=== PATIENT | female | born 1955 | race Hispanic/Latino ===

== ENCOUNTER 2021-02-26 09:17 | Observation (INO) | payer MEDICARE ==
[~2021-02-26] VITALS: Ht 160 cm; Wt 67.8 kg
[2021-02-26 09:48] LABS: BASOPHILS % (AUTO) 0.4 % (0.0-5.0); EOSINOPHILS % (AUTO) 0.6 % (0.0-8.0); HEMATOCRIT 45.2 % (36-48); LYMPHOCYTES % (AUTO) 24.9 % (21.0-51.0); MEAN CORPUSCULAR HEMOGLOBIN 29.4 pg (27.0-33.0); MEAN CORPUSCULAR HGB CONC 33.2 g/dL (32.0-36.0); MEAN CORPUSCULAR VOLUME 88.5 fL (79-99); MONOCYTES % (AUTO) 4.8 % (3.0-13.0); NEUTROPHILS % (AUTO) 68.8 % (40.0-77.0); PLATELET COUNT (AUTO) 330 K/uL (130-400); RED BLOOD CELL COUNT(AUTO) 5.11 MIL/uL (4.00-5.50); RED CELL DISTRIBUTION WIDTH 12.6 % (11.0-15.5); WHITE BLOOD COUNT (AUTO) 7.8 K/uL (4.8-10.8)
[2021-02-26 10:01] LABS: CREATININE 0.8 mg/dL (0.5-1.5)
[2021-02-26 10:05] LABS: INR 0.94 (0.85-1.15); PROTHROMBIN TIME 10.3 SEC (9.6-11.6)
[2021-02-26 10:06] LABS: ALBUMIN 3.9 g/dL (3.5-5.0); B-TYPE NATRIURETIC PEPTIDE 119 pg/mL (0-100); BILIRUBIN,TOTAL 0.5 mg/dL (0.2-1.0); PARTIAL THROMBOPLASTIN TIME 23.6 SEC (26.3-35.5); TOTAL PROTEIN, SERUM 7.5 g/dL (6.0-8.3)
[2021-02-26 13:36] LABS: MAGNESIUM 2.2 mg/dL (1.80-2.40); THYROID STIMULATING HORMONE 3.25 uIU/mL (0.36-3.74)
[2021-02-26] MEDS: DOXYCYCLINE 100MG+NS 250ML 250 ML IV SCH (14:45)
[2021-02-26] MEDS ORDERED: FOLIC ACID 5 MG/ML 10 ML VIAL IV SCH (14:45)
[2021-02-26] MEDS ORDERED: THIAMINE HCL 100 MG/ML 2ML VIAL IVP SCH (14:45)
[2021-02-26] MEDS: CEFTRIAXONE SODIUM 1 GM IVP SCH (14:45)
[2021-02-26 14:54] LABS: APPEARANCE,URINE Clear (CLEAR); BILIRUBIN,URINE Negative (NEGATIVE); COLOR,URINE Yellow (YELLOW); GLUCOSE, URINE (UA) >=1000 mg/dL (NEGATIVE); KETONES,URINE Negative (NEGATIVE); LEUKOCYTE ESTERASE ,URINE Negative (NEGATIVE); NITRATE,URINE Negative (NEGATIVE); OCCULT BLOOD,URINE Negative (NEGATIVE); PROTEIN,URINE Negative (NEGATIVE); UROBILINOGEN,URINE 0.2 mg/dL (0.2-1.0)
[2021-02-26 15:01] LABS: HEMOGLOBIN A1C 8.3 % (4.0-6.0)
[2021-02-26 15:17] LABS: BACTERIA,URINE Many /HPF (None Seen); RBC,URINE None Seen /HPF (0-1); WBC,URINE 0-1 /HPF (0-1)
[2021-02-26 15:18] LABS: SQUAMOUS EPITHELIAL CELL,UR 0-2 /HPF (0-2)
[2021-02-26] MEDS ORDERED: THIAMINE HCL 100 MG/ML 2ML VIAL ONE (15:27)
[2021-02-26] MEDS ORDERED: CEFTRIAXONE SODIUM 1 GM ONE (15:27)
[2021-02-26] MEDS ORDERED: FOLIC ACID 5 MG/ML 10 ML VIAL ONE (15:31)
[2021-02-26] MEDS ORDERED: SODIUM CHLORIDE 0.9% 1000ML 1,000 ML IV ONE (15:34)
[2021-02-26] MEDS ORDERED: ASPIRIN 81MG TAB.CHEW PO SCH (16:30)
[2021-02-26] MEDS ORDERED: ASPIRIN 81MG TAB.CHEW ONE (17:36)
[2021-02-26] MEDS ORDERED: DOXYCYCLINE 100MG+NS 250ML 250 ML IV ONE ×2 (17:36→21:35)
[2021-02-26] MEDS: INSULIN HUMULIN R 100 UNIT/ML 3ML SQ SCH (21:00)
[2021-02-26] MEDS ORDERED: DAPA10TA PO (21:17)
[2021-02-26] MEDS ORDERED: LOSA25TA41 PO (21:18)
[2021-02-26] MEDS ORDERED: ASPI-1197 PO (21:18)
[2021-02-26] MEDS ORDERED: METF-445 PO (21:19)
[2021-02-26] MEDS ORDERED: LINA5TAB PO (21:20)
[2021-02-26] MEDS ORDERED: LIRA0.6P SQ (21:21)
[2021-02-26] MEDS ORDERED: LOSARTAN 50 MG TABLET ONE (21:35)
[2021-02-26 21:53] LABS: CREATININE 0.6 mg/dL (0.5-1.5); POTASSIUM 3.9 mmol/L (3.5-5.1)
[2021-02-26 22:30] VITALS: BP 142/69
[2021-02-27] MEDS: CEFTRIAXONE SODIUM 1 GM IVP SCH (02:47)
[2021-02-27] MEDS ORDERED: DOXYCYCLINE 100MG+NS 250ML 250 ML IV ONE (02:52)
[2021-02-27] MEDS: DOXYCYCLINE 100MG+NS 250ML 250 ML IV SCH (02:55)
[2021-02-27] MEDS: SODIUM CHLORIDE 0.9% 1000ML 1,000 ML IV SCH ×2 (02:56→04:05)
[2021-02-27 04:00] VITALS: BP 128/57
[2021-02-27 05:32] LABS: BASOPHILS % (AUTO) 0.6 % (0.0-5.0); EOSINOPHILS % (AUTO) 2.5 % (0.0-8.0); HEMATOCRIT 38.2 % (36-48); LYMPHOCYTES % (AUTO) 35.7 % (21.0-51.0); MEAN CORPUSCULAR HEMOGLOBIN 29.6 pg (27.0-33.0); MEAN CORPUSCULAR HGB CONC 33.5 g/dL (32.0-36.0); MEAN CORPUSCULAR VOLUME 88.4 fL (79-99); MONOCYTES % (AUTO) 7.7 % (3.0-13.0); NEUTROPHILS % (AUTO) 53.3 % (40.0-77.0); PLATELET COUNT (AUTO) 264 K/uL (130-400); RED BLOOD CELL COUNT(AUTO) 4.32 MIL/uL (4.00-5.50); RED CELL DISTRIBUTION WIDTH 12.8 % (11.0-15.5); WHITE BLOOD COUNT (AUTO) 4.8 K/uL (4.8-10.8)
[2021-02-27] MEDS: INSULIN HUMULIN R 100 UNIT/ML 3ML SQ SCH ×2 (06:02→11:30)
[2021-02-27 06:21] LABS: CREATININE 0.6 mg/dL (0.5-1.5); MAGNESIUM 1.8 mg/dL (1.80-2.40); POTASSIUM 3.8 mmol/L (3.5-5.1)
[2021-02-27 07:00] VITALS: BP_SYST 132; BP_SYST 138; BP_SYST 145; BP_DIAS 69; BP_DIAS 71; BP_DIAS 78
[2021-02-27] MEDS ORDERED: THIAMINE HCL 100 MG/ML 2ML VIAL IVP SCH (09:00)
[2021-02-27] MEDS ORDERED: ENOXAPARIN SODIUM 40 MG/0.4 ML SYRINGE SQ SCH (09:00)
[2021-02-27] MEDS ORDERED: FOLIC ACID 5 MG/ML 10 ML VIAL IV SCH (09:00)
[2021-02-27] MEDS ORDERED: LOSARTAN 25 MG TABLET PO SCH (09:00)
[2021-02-27] MEDS ORDERED: ASPIRIN 81MG TAB.CHEW PO SCH ×2 (09:00)
[2021-02-27 11:00] VITALS: BP 134/61
[2021-02-27] MEDS ORDERED: SULF1TAB42 PO (12:18)
[2021-02-27 13:29] LABS: AMPHET/METH SCREEN,URINE NEGATIVE (NEGATIVE); BARBITURATE SCREEN, URINE NEGATIVE (NEGATIVE); BENZODIAZEPINES SCREEN,URINE NEGATIVE (NEGATIVE); CANNABINOID SCREEN,URINE NEGATIVE (NEGATIVE); COCAINE SCREEN,URINE NEGATIVE (NEGATIVE); OPIATE SCREEN,URINE NEGATIVE (NEGATIVE); PHENCYCLIDINE SCREEN,URINE NEGATIVE (NEGATIVE)
== END 2021-02-27 15:45 | disposition home or self-care (01) ==
LOC: EDH 09:17 → EDHIP 14:32 → 3CH 21:34
PROVIDERS: ADMIT Internal Medicine; ATTEND Internal Medicine
DX: R00.0 Tachycardia, unspecified (principal); Z20.822 Contact with and (suspected) exposure to COVID-19; R07.89 Other chest pain; E87.2 Acidosis; E86.0 Dehydration; I10 Essential (primary) hypertension; R77.8 Other specified abnormalities of plasma proteins; R11.2 Nausea with vomiting, unspecified; N39.0 Urinary tract infection, site not specified; E11.9 Type 2 diabetes mellitus without complications; E78.5 Hyperlipidemia, unspecified; Z79.84 Long term (current) use of oral hypoglycemic drugs; Z79.82 Long term (current) use of aspirin; Z79.899 Other long term (current) drug therapy
CPT/HCPCS: 36415 ×2; 71045; 80048; 80053; 80305; 81001; 82550; 82948 ×3; 83036; 83605 ×2; 83735 ×3; 83880; 84145; 84443; 84484 ×4; 85025 ×2; 85378; 85610; 85651; 85730; 86140; 87040 ×2; 87077; 87088; 87186; 87426; 87507; 87804 ×2; 93005 ×2; 93970; 96365; 96366; 96372; 96375; 99285; G0378 ×25; J0696 ×2; J1650; J3411 ×2; J3490 ×6; J7030 ×2; U0003

== ENCOUNTER 2023-02-24 02:31 | Observation (INO) | payer MEDICARE ==
[~2023-02-24] VITALS: Ht 160 cm; Wt 68.5 kg
[~2023-02-24 02:31] MED LIST: APIX5TAB PO; ATOR10TA69 PO; CILO100T3 PO; DAPA10TA PO; GABA-529 PO; LINA5TAB PO; LIRA0.6P SQ; LOSA25TA41 PO; METF-445 PO; PROP225C8 PO
[2023-02-24] MEDS ORDERED: DILTIAZEM 125 MG/25 ML INJ IV ONE (02:34)
[2023-02-24 02:48] LABS: BASOPHILS % (AUTO) 0.7 % (0.0-5.0); EOSINOPHILS % (AUTO) 2.1 % (0.0-8.0); HEMATOCRIT 44.5 % (36-48); LYMPHOCYTES % (AUTO) 41.5 % (21.0-51.0); MEAN CORPUSCULAR HEMOGLOBIN 26.7 pg (27.0-33.0); MEAN CORPUSCULAR HGB CONC 31.5 g/dL (32.0-36.0); MEAN CORPUSCULAR VOLUME 84.9 fL (79-99); MONOCYTES % (AUTO) 8.2 % (3.0-13.0); NEUTROPHILS % (AUTO) 47.2 % (40.0-77.0); PLATELET COUNT (AUTO) 332 K/uL (130-400); RED BLOOD CELL COUNT(AUTO) 5.24 MIL/uL (4.00-5.50); RED CELL DISTRIBUTION WIDTH 14.6 % (11.0-15.5)
[2023-02-24] MEDS ORDERED: METOPROLOL TARTRATE 1 MG/ML 5ML VIAL IV ONE ×2 (02:49→04:30)
[2023-02-24 03:00] LABS: CREATININE 0.8 mg/dL (0.5-1.5); POTASSIUM 4.3 mmol/L (3.5-5.1)
[2023-02-24 03:02] LABS: INR 0.93 (0.85-1.15); PROTHROMBIN TIME 10.1 SEC (9.6-11.6)
[2023-02-24 03:03] LABS: PARTIAL THROMBOPLASTIN TIME 27.5 SEC (26.3-35.5)
[2023-02-24 03:05] LABS: ALBUMIN 4.1 g/dL (3.5-5.0); MAGNESIUM 1.9 mg/dL (1.80-2.40); TOTAL PROTEIN, SERUM 6.9 g/dL (6.0-8.3)
[2023-02-24 03:22] LABS: B-TYPE NATRIURETIC PEPTIDE 324 pg/mL (0-100)
[2023-02-24] MEDS ORDERED: MIDAZOLAM HCL 5 MG/ML 2ML VIAL IV ONE (03:46)
[2023-02-24 03:53] VITALS: BP_DIAS 62
[2023-02-24] MEDS ORDERED: ONDANSETRON 4MG INJ IV PRN (04:00)
[2023-02-24] MEDS ORDERED: AMIODARONE 900MG VIAL 360 MG in DEXTROSE 5%-WATER 200 ML IV SCH (04:00)
[2023-02-24] MEDS ORDERED: KCL 20 MEQ ERTAB PO PRN (04:00)
[2023-02-24] MEDS ORDERED: LACTATED RINGERS 1000ML 1,000 ML IV SCH (04:00)
[2023-02-24] MEDS ORDERED: POTASSIUM CHLORIDE 10MEQ/100ML 100 ML IV PRN (04:00)
[2023-02-24] MEDS ORDERED: ACETAMINOPHEN 325 MG TAB PO PRN ×2 (04:00)
[2023-02-24] MEDS ORDERED: MIDAZOLAM HCL 1 MG/ML 2ML VIAL IVP ONE (04:00)
[2023-02-24] MEDS ORDERED: MORPHINE 4 MG SYG IV PRN (04:00)
[2023-02-24] MEDS ORDERED: LIDOCAINE HCL-MPF 1% 2ML VIAL IV PRN (04:00)
[2023-02-24] MEDS ORDERED: POTASSIUM CHLORIDE 10% ELIXIR 20 MEQ/15 ML UDCUP PO PRN (04:00)
[2023-02-24] MEDS ORDERED: MAGNESIUM 2GM PREMIX 50ML 50 ML IV PRN (04:00)
[2023-02-24] MEDS ORDERED: MORPHINE 2 MG SYG IV PRN (04:00)
[2023-02-24] MEDS ORDERED: SEMA1PEN3 SQ (04:17)
[2023-02-24] MEDS ORDERED: DILTIAZEM 25MG INJ IVP ONE (04:30)
[2023-02-24] MEDS ORDERED: 0.9%NACL 1000ML 1,000 ML IV ONE (04:30)
[2023-02-24] MEDS ORDERED: AMIODARONE 150MG VIAL ONE (04:30)
[2023-02-24 05:55] LABS: APPEARANCE,URINE CLEAR (CLEAR); BILIRUBIN,URINE NEGATIVE (NEGATIVE); COLOR,URINE COLORLESS (YELLOW); GLUCOSE, URINE (UA) >=1000 mg/dL (NEGATIVE); KETONES,URINE NEGATIVE (NEGATIVE); LEUKOCYTE ESTERASE ,URINE NEGATIVE Leu/uL (NEGATIVE); NITRATE,URINE NEGATIVE (NEGATIVE); OCCULT BLOOD,URINE NEGATIVE (NEGATIVE); PROTEIN,URINE NEGATIVE (NEGATIVE); UROBILINOGEN,URINE 0.2 mg/dL (0.2-1.0)
[2023-02-24 05:56] LABS: MUCUS,URINE RARE LPF (None Seen); RBC,URINE 0-1 /HPF (0-1); SQUAMOUS EPITHELIAL CELL,UR RARE /HPF (0-2); WBC,URINE 0-1 /HPF (0-1)
[2023-02-24 07:16] LABS: HEMOGLOBIN A1C 7.4 % (4.0-6.0)
[2023-02-24] MEDS: INSULIN HUMULIN R 100 UNIT/ML 3ML SQ SCH ×4 (07:30→21:04)
[2023-02-24] MEDS: APIXABAN 5 MG TABLET PO SCH ×2 (08:54→21:03)
[2023-02-24] MEDS: FAMOTIDINE 20MG TAB PO SCH (08:54)
[2023-02-24 09:14] VITALS: BP 119/64
[2023-02-24] MEDS ORDERED: AMIODARONE 900MG VIAL 540 MG in DEXTROSE 5%-WATER 300 ML IV SCH (10:00)
[2023-02-24 11:49] VITALS: BP 110/60
[2023-02-24 16:02] VITALS: BP 121/71
[2023-02-24 19:29] VITALS: BP 118/67
[2023-02-24] MEDS ORDERED: ATORVASTATIN 20 MG TABLET PO SCH (21:00)
[2023-02-24] MEDS ORDERED: GABAPENTIN 100 MG CAPSULE PO SCH (21:00)
[2023-02-24 23:57] VITALS: BP 117/64
[2023-02-25 04:12] LABS: BASOPHILS % (AUTO) 0.6 % (0.0-5.0); EOSINOPHILS % (AUTO) 2.7 % (0.0-8.0); HEMATOCRIT 37.5 % (36-48); LYMPHOCYTES % (AUTO) 27.9 % (21.0-51.0); MEAN CORPUSCULAR HEMOGLOBIN 26.8 pg (27.0-33.0); MEAN CORPUSCULAR HGB CONC 31.5 g/dL (32.0-36.0); MONOCYTES % (AUTO) 9.2 % (3.0-13.0); NEUTROPHILS % (AUTO) 59.4 % (40.0-77.0); PLATELET COUNT (AUTO) 257 K/uL (130-400); RED BLOOD CELL COUNT(AUTO) 4.41 MIL/uL (4.00-5.50); RED CELL DISTRIBUTION WIDTH 14.6 % (11.0-15.5); WHITE BLOOD COUNT (AUTO) 4.9 K/uL (4.8-10.8)
[2023-02-25 04:32] VITALS: BP 124/73
[2023-02-25 04:34] VITALS: BP 124/73
[2023-02-25 04:40] LABS: CREATININE 0.7 mg/dL (0.5-1.5); PHOSPHORUS 4.5 mg/dL (2.5-4.9); POTASSIUM 4.3 mmol/L (3.5-5.1); THYROID STIMULATING HORMONE 1.74 uIU/mL (0.36-3.74)
[2023-02-25] MEDS: INSULIN HUMULIN R 100 UNIT/ML 3ML SQ SCH ×2 (06:18→11:30)
[2023-02-25] MEDS ORDERED: LINAGLIPTIN 5 MG TABLET ONE (07:29)
[2023-02-25] MEDS ORDERED: AMIODARONE 900MG VIAL 540 MG in DEXTROSE 5%-WATER 300 ML IV SCH (07:30)
[2023-02-25] MEDS: FAMOTIDINE 20MG TAB PO SCH (07:35)
[2023-02-25] MEDS: APIXABAN 5 MG TABLET PO SCH (07:35)
[2023-02-25 08:00] VITALS: BP 139/77
[2023-02-25] MEDS ORDERED: **HM**FARXIGA 10MG PO SCH (09:00)
[2023-02-25] MEDS ORDERED: LINAGLIPTIN 5 MG TABLET PO SCH (09:00)
[2023-02-25 11:25] VITALS: BP 115/61
[2023-02-25] MEDS ORDERED: AMIODARONE 200 MG TABLET PO SCH (12:00)
[2023-02-25] MEDS ORDERED: AMIO200T68 PO (13:57)
== END 2023-02-25 16:22 | disposition home or self-care (01) ==
LOC: EDH 02:31 → EDHIP 03:57 → INTOOBSV 03:57 → 2DH 08:21
PROVIDERS: ADMIT Internal Medicine; ATTEND Internal Medicine
DX: I48.20 Chronic atrial fibrillation, unspecified (principal); I47.1 Supraventricular tachycardia; E11.9 Type 2 diabetes mellitus without complications; E78.5 Hyperlipidemia, unspecified; R79.89 Other specified abnormal findings of blood chemistry; I20.9 Angina pectoris, unspecified; Z51.5 Encounter for palliative care; Z79.01 Long term (current) use of anticoagulants; Z79.899 Other long term (current) drug therapy; Z90.49 Acquired absence of other specified parts of digestive tract; Z98.890 Other specified postprocedural states
CPT/HCPCS: 96361; 96365; 96366 ×3; 96375; 96368; 99285; 83036; 83735 ×3; 84484 ×4; 80053; 83880; 85025 ×2; 85610; 85730; 82948 ×6; 81001; 36415 ×2; 71045; 93005 ×2; 84443; 84100; 80048; J1815; J3475; J3490 ×2; J7060 ×2; J0282 ×3; J2250; G0378 ×2

== ENCOUNTER → 2023-03-03 | Outpatient (CLI) | payer MEDICARE ==
[~2023-03-03] MED LIST changes: +AMIO200T68 PO; -LIRA0.6P SQ; -PROP225C8 PO; +REGADENOSON 0.4 MG/5 ML PF SYG IVP ONE; +SEMA1PEN3 SQ
== END | disposition home or self-care (01) ==
LOC: SHCH 08:32
PROVIDERS: ATTEND Internal Medicine Cardiovascular Disease
DX: R07.9 Chest pain, unspecified (principal)
CPT/HCPCS: 78452; 96374; 93017; J2785; A9500 ×2

== ENCOUNTER → 2024-04-29 | Outpatient (CLI) | payer MEDICARE ==
[~2024-04-29] MED LIST changes: -REGADENOSON 0.4 MG/5 ML PF SYG IVP ONE
[2024-04-29 16:24] LABS: BASOPHILS # (AUTO) 0.03 K/uL (0.00-0.20); BASOPHILS % (AUTO) 0.5 % (0.0-5.0); EOSINOPHILS # (AUTO) 0.06 K/uL (0.00-0.70); EOSINOPHILS % (AUTO) 1.1 % (0.0-8.0); IMMATURE GRANULOCYTE ABSOLUTE 0.01 K/uL (0-1); LYMPHOCYTES # (AUTO) 1.9 K/uL (1.0-4.8); LYMPHOCYTES % (AUTO) 32.9 % (21.0-51.0); MEAN CORPUSCULAR HEMOGLOBIN 29.8 pg (27.0-33.0); MEAN CORPUSCULAR HGB CONC 32.3 g/dL (32.0-36.0); MEAN CORPUSCULAR VOLUME 92.2 fL (79-99); MONOCYTES # (AUTO) 0.4 K/uL (0.1-1.0); MONOCYTES % (AUTO) 7.3 % (3.0-13.0); NEUTROPHILS # (AUTO) 3.3 K/uL (1.8-7.7); PLATELET COUNT (AUTO) 344 K/uL (130-400); RED BLOOD CELL COUNT(AUTO) 4.23 MIL/uL (4.00-5.50); RED CELL DISTRIBUTION WIDTH 13.4 % (11.0-15.5); WHITE BLOOD COUNT (AUTO) 5.7 K/uL (4.8-10.8)
[2024-04-29 16:46] LABS: ALBUMIN 3.9 g/dL (3.5-5.0); BILIRUBIN,TOTAL 0.4 mg/dL (0.2-1.0); CREATININE 0.8 mg/dL (0.5-1.0); POTASSIUM 5.5 mmol/L (3.5-5.1); T4 (THYROXINE) 7.3 ug/dL (4.7-13.3); THYROID STIMULATING HORMONE 5.85 uIU/mL (0.36-3.74); TOTAL PROTEIN, SERUM 7.3 g/dL (6.0-8.3)
== END | disposition home or self-care (01) ==
LOC: LAB 14:08
PROVIDERS: ATTEND Student in an Organized Health Care Education/Training Program
DX: I48.0 Paroxysmal atrial fibrillation (principal)
CPT/HCPCS: 36415; 80053; 84436; 84443; 84479; 85025

== ENCOUNTER → 2024-05-17 | Outpatient (CLI) | payer MEDICARE ==
[~2024-05-17] MED LIST changes: -AMIO200T68 PO; -APIX5TAB PO; -ATOR10TA69 PO; +ATOR40TA69 PO; -CILO100T3 PO; -LINA5TAB PO; -LOSA25TA41 PO; -METF-445 PO; +METF-446 PO; +METO25 PO; +WARF-57 PO
[2024-05-17 15:22] LABS: BASOPHILS # (AUTO) 0.02 K/uL (0.00-0.20); BASOPHILS % (AUTO) 0.3 % (0.0-5.0); EOSINOPHILS # (AUTO) 0.09 K/uL (0.00-0.70); EOSINOPHILS % (AUTO) 1.5 % (0.0-8.0); HEMATOCRIT 39.7 % (36-48); IMMATURE GRANULOCYTE ABSOLUTE 0.02 K/uL (0-1); LYMPHOCYTES # (AUTO) 1.9 K/uL (1.0-4.8); LYMPHOCYTES % (AUTO) 32.1 % (21.0-51.0); MEAN CORPUSCULAR HEMOGLOBIN 30.4 pg (27.0-33.0); MEAN CORPUSCULAR VOLUME 89.4 fL (79-99); MONOCYTES # (AUTO) 0.4 K/uL (0.1-1.0); MONOCYTES % (AUTO) 5.8 % (3.0-13.0); NEUTROPHILS # (AUTO) 3.6 K/uL (1.8-7.7); PLATELET COUNT (AUTO) 339 K/uL (130-400); RED BLOOD CELL COUNT(AUTO) 4.44 MIL/uL (4.00-5.50); RED CELL DISTRIBUTION WIDTH 13.2 % (11.0-15.5); WHITE BLOOD COUNT (AUTO) 6.1 K/uL (4.8-10.8)
[2024-05-17 15:54] LABS: ALBUMIN 3.9 g/dL (3.5-5.0); BILIRUBIN,TOTAL 0.2 mg/dL (0.2-1.0); CREATININE 0.7 mg/dL (0.5-1.0); POTASSIUM 5.1 mmol/L (3.5-5.1); T4 (THYROXINE) 6.8 ug/dL (4.7-13.3); THYROID STIMULATING HORMONE 4.63 uIU/mL (0.36-3.74); TOTAL PROTEIN, SERUM 7.4 g/dL (6.0-8.3)
== END | disposition home or self-care (01) ==
LOC: LAB 11:45
PROVIDERS: ATTEND Student in an Organized Health Care Education/Training Program
DX: I48.0 Paroxysmal atrial fibrillation (principal)
CPT/HCPCS: 36415; 80053; 84436; 84443; 84479; 85025

== ENCOUNTER → 2024-05-24 | Outpatient (CLI) | payer MEDICARE ==
[2024-05-24 12:23] LABS: INR 2.34 (0.85-1.15); PROTHROMBIN TIME 23.7 SEC (9.6-11.6)
[2024-05-24 12:25] LABS: PARTIAL THROMBOPLASTIN TIME 38.2 SEC (26.3-35.5)
== END | disposition home or self-care (01) ==
LOC: LAB 08:08
PROVIDERS: ATTEND Internal Medicine Cardiovascular Disease
DX: I48.0 Paroxysmal atrial fibrillation (principal); Z79.01 Long term (current) use of anticoagulants
CPT/HCPCS: 36415; 85610; 85730

== ENCOUNTER → 2024-05-31 | Outpatient (CLI) | payer MEDICARE ==
[2024-05-31 15:30] LABS: INR 2.35 (0.85-1.15); PROTHROMBIN TIME 23.8 SEC (9.6-11.6)
[2024-05-31 15:31] LABS: PARTIAL THROMBOPLASTIN TIME 37.6 SEC (26.3-35.5)
== END | disposition home or self-care (01) ==
LOC: LAB 13:00
PROVIDERS: ATTEND Internal Medicine Cardiovascular Disease
DX: I48.0 Paroxysmal atrial fibrillation (principal); Z79.01 Long term (current) use of anticoagulants
CPT/HCPCS: 36415; 85610; 85730

== ENCOUNTER → 2024-12-09 | Outpatient (CLI) | payer MEDICARE ==
[2024-12-09 16:34] LABS: BASOPHILS # (AUTO) 0.03 K/uL (0.00-0.20); BASOPHILS % (AUTO) 0.5 % (0.0-5.0); EOSINOPHILS # (AUTO) 0.14 K/uL (0.00-0.70); EOSINOPHILS % (AUTO) 2.2 % (0.0-8.0); IMMATURE GRANULOCYTE ABSOLUTE 0.02 K/uL (0-1); LYMPHOCYTES # (AUTO) 1.9 K/uL (1.0-4.8); LYMPHOCYTES % (AUTO) 29.5 % (21.0-51.0); MEAN CORPUSCULAR HEMOGLOBIN 27.5 pg (27.0-33.0); MEAN CORPUSCULAR VOLUME 88.8 fL (79-99); MONOCYTES # (AUTO) 0.3 K/uL (0.1-1.0); MONOCYTES % (AUTO) 5.3 % (3.0-13.0); NEUTROPHILS % (AUTO) 62.2 % (40.0-77.0); PLATELET COUNT (AUTO) 314 K/uL (130-400); RED BLOOD CELL COUNT(AUTO) 4.73 MIL/uL (4.00-5.50); RED CELL DISTRIBUTION WIDTH 15.6 % (11.0-15.5); WHITE BLOOD COUNT (AUTO) 6.4 K/uL (4.8-10.8)
[2024-12-09 17:04] LABS: T4 (THYROXINE) 7.5 ug/dL (4.7-13.3); THYROID STIMULATING HORMONE 3.29 uIU/mL (0.36-3.74)
== END | disposition home or self-care (01) ==
LOC: LAB 13:21
PROVIDERS: ATTEND Internal Medicine Cardiovascular Disease
DX: I25.10 Atherosclerotic heart disease of native coronary artery without angina pectoris (principal); I48.0 Paroxysmal atrial fibrillation
CPT/HCPCS: 36415; 84436; 84443; 85025